=== PATIENT | female | born 1970 | race Caucasian/White ===

== ENCOUNTER 2022-01-06 15:06 | Emergency (ER) | payer BC, SELFPAY ==
[2022-01-06 15:19] VITALS: BP 118/75; PULSE 75; RESP 16; TEMP 36.9; O2SAT 98
--- NOTE | 2022-01-06 16:12 | ED.SKABFB ---
HPI - Skin/Abscess/Foreign Bdy General Chief complaint: Extremity Injury, Lower Stated complaint: toe inf Time Seen by Provider: 01/06/22 15:30 Source: patient Mode of arrival: ambulatory Limitations: no limitations History of Present Illness HPI narrative: Ms. Vaughan is a 51-year-old female patient presenting to the clinic today with complaints of possible toe infection to the right second toe. She reports that over a month ago she possibly stepped on a piece of glass in her mother's carpet. She has attempted to remove the glass twice being the last time 1 week ago and now the area is tender and swollen. She still thinks there may be something in her toe. Related Data Home Medications Medication Instructions Recorded Confirmed albuterol sulfate 90 mcg/actuation inhalation 01/06/22 aerosol inhaler fluoxetine 20 mg capsule mg 01/06/22 Allergies Allergy/AdvReac Type Severity Reaction Status Date / Time LEVOQUIN Allergy Intermediate ITCHY Uncoded 01/06/22 15:18 SWEATY Review of Systems Review of Systems: Pertinent positives per HPI. Patient denies any fever, chills, rash, headache, visual changes, dizziness, cough, runny nose, sore throat, shortness of breath, chest pain, palpitations, nausea, vomiting, diarrhea, constipation, abdominal pain, or any urinary issues. PMFSH Comments At the time of my signature, I reviewed and agree with the nursing past medical, surgical, social, and family history. There is no relevant family history pertinent to the patient complaint. Exam Narrative: General: Well-developed, well nourished, in no apparent distress Head: Normocephalic, atraumatic. Cardio: Regular rate and rhythm, s1 and s2 normal, no murmur appreciated. Resp: Clear to auscultation bilaterally, no rhonchi, rales, wheezing or rubs. Integumentary: [place], warm, and dry, callus to the plantar aspect of the right second toe with a black center. Tender to palpation without fluctuance -mild redness Course Course Emergency Course: Portions of this record may have been created with voice recognition software. Level of Care: Express Care Visit Vital Signs Vital signs: Vital Signs Temperature 36.9 C 01/06/22 15:19 Pulse Rate 75 01/06/22 15:19 Respiratory Rate 16 01/06/22 15:19 Blood Pressure 118/75 01/06/22 15:19 Pulse Oximetry 98 01/06/22 15:19 Oxygen Delivery Room Air 01/06/22 15:19 Temperature 36.9 C 01/06/22 15:19 Pulse Rate 75 01/06/22 15:19 Respiratory Rate 16 01/06/22 15:19 Blood Pressure 118/75 01/06/22 15:19 Pulse Oximetry 98 01/06/22 15:19 Oxygen Delivery Room Air 01/06/22 15:19 Vital signs reviewed Procedures Foreign Body Removal Foreign Body #1: Foreign Body Removal Date: 01/06/22 Site: right (Second toe) Description of foreign body: other (Possible glass) Technique: other (18-gauge needle) Confirmed by:: palpation Complications: none Post-procedure exam: awake, alert Neurovascular: no change from pre-procedure Foreign Body Removal Narrative: Verbal consent obtained for foreign body removal of the soft tissue of the second right toe. Plantar aspect of the second toe was cleansed with technic care and sterile saline. Numbed using 1 mL of 1% lidocaine without epi. 18-gauge needle was used to remove the black center of the callus and soft tissue was explored without any visualization or palpation of foreign body. Patient tolerated procedure well. Triple antibiotic ointment and Band-Aid was applied postprocedure MDM - Skin/Abscess/Foreign Bdy MDM Narrative Medical decision making narrative: At the time of visit patient is resting comfortably on the exam table. She has right second toe pain. Callus was removed in the clinic however no actual foreign body was removed or found from the toe. Patient tolerated procedure well. Supportive measures were discussed with the patient she voiced unders
== END 2022-01-06 16:19 | disposition home or self-care (01) ==
PROVIDERS: Emergency Provider Nurse Practitioner Family
DX: M79.674 Pain in right toe(s) (principal); F41.9 Anxiety disorder, unspecified
CPT/HCPCS: 99213; G0463

== ENCOUNTER 2022-04-14 15:27 | Emergency (ER) | payer BC, SELFPAY ==
--- NOTE | ~2022-04-14 | XR_ITS ---
EXAMINATION: XR chest 2V DATE: 04/14/2022 15:47 INDICATION: 2 months of cough TECHNIQUE: PA and lateral views of the chest were obtained. COMPARISON: None FINDINGS: Heart is normal with small pericardial fat pad along side the left ventricular apex. Lungs are clear with no focal airspace opacities, pulmonary edema, pleural effusion or pneumothorax. Mild anterior w edging of a couple upper thoracic vertebral bodies. IMPRESSION: 1. No acute cardiopulmonary disease. Reviewed, dictated and finalized at location [facility]
[2022-04-14 15:36] VITALS: BP 128/77; PULSE 82; RESP 16; TEMP 36.6; O2SAT 99
--- NOTE | 2022-04-14 15:42 | ED.URI ---
HPI - URI/Sore Throat General Chief Complaint: Upper Respiratory Infection Stated Complaint: COUGH/CONGESTION/STUFFY NOSE/FEVER Time Seen by Provider: 04/14/22 15:42 Source: patient and RN notes reviewed History of Present Illness HPI Narrative: Patient is a 51-year-old female who presents to urgent care with complaints of a cough, left ear pain and nasal congestion. Patient states that she has been sick since she had COVID in January. Patient was placed on Keflex on February 20. Patient was then placed on doxycycline approximately 1 month ago on March 05 and given an inhaler for diagnosis of ?pneumonia?. Patient currently parts of using [place] cold and flu for her medication for symptoms. Denies any recent fevers. States symptoms restarted approximately 1 week ago. Patient is followed up with her doctor. States that she [place] half away. Currently denies any shortness of breath or chest discomfort. She has been using her old prescription for an inhaler. States that she has never been diagnosed with asthma but has had recurrent bronchitis. No other acute complaints. No acute distress noted. Patient aware of the plan of care. Some parts of this dictation were generated by voice recognition software and may contain typographical and/or grammatical inaccuracies. Related Data Home Medications Medication Instructions Recorded Confirmed albuterol sulfate 90 mcg/actuation 2 inh inhalation PRN PRN Wheezing 01/06/22 04/14/22 aerosol inhaler fluoxetine 20 mg capsule 20 mg PO DAILY 01/06/22 04/14/22 Allergies Allergy/AdvReac Type Severity Reaction Status Date / Time LEVOQUIN Allergy Intermediate ITCHY Uncoded 04/14/22 15:35 SWEATY Review of Systems Review of Systems: CONSTITUTIONAL: Denies fever, chills, or sweats. EYES: Denies visual changes, redness, or discharge. ENT: Reports of nasal congestion, left otalgia CARDIOVASCULAR: Denies chest pain, palpitations, or edema. RESPIRATORY: Reports of intermittent productive cough with intermittent dyspnea GASTROINTESTINAL: Denies abdominal pain, nausea, vomiting, or diarrhea. GENITOURINARY: Denies dysuria or hematuria. SKIN: Denies rash or itching. MUSCULOSKELETAL: Denies back pain, joint pain, or myalgia. NEUROLOGIC: Denies headache, numbness, or weakness. All other systems reviewed are negative, except as documented in HPI. PMFSH Comments At the time of my signature, I reviewed and agree with the nursing past medical, surgical, social, and family history. There is no relevant family history pertinent to the patient complaint. Exam Narrative: GENERAL: This is a well-nourished, well-developed patient, in no apparent distress. HEAD: normocephalic, atraumatic. EYES: PERRL. Sclera clear/white. Vision is grossly intact. EARS: External ears normal, auditory canals clear and without drainage, mild bilateral eustachian tube dysfunction, worse on the left. TMs normal without perforation. Hearing grossly intact. NOSE: External nose normal with no obvious nasal discharge, nares without redness, no rhinorrhea. THROAT: Mucous membranes moist, posterior pharynx clear. Moderate postnasal drainage NECK: Neck supple, non-tender bilateral submandibular lymphadenopathy CARDIOVASCULAR: Regular rate and rhythm RESPIRATORY: Slight crackles throughout SKIN: warm, intact with no suspicious lesions or rash, good texture and turgor. NEURO: awake, alert, and oriented to person, place and time. There were no obvious focal neurologic abnormalities. EXTREMITIES: No clubbing, cyanosis, or edema. Course Course Level of Care: Express Care Visit Vital Signs Vital signs: Vital Signs Temperature 98 F 04/14/22 15:36 Pulse Rate 82 04/14/22 15:36 Respiratory Rate 16 04/14/22 15:36 Blood Pressure 128/77 04/14/22 15:36 Pulse Oximetry 99 04/14/22 15:36 Temperature 98 F 04/14/22 15:36 Pulse Rate 82 04/14/22 15:36 Respiratory Rate 16 04/14/22 15:3
== END 2022-04-14 16:35 | disposition home or self-care (01) ==
PROVIDERS: Emergency Provider Nurse Practitioner Family
DX: J40 Bronchitis, not specified as acute or chronic (principal)
CPT/HCPCS: 71046; 87081; 87880; 99213; G0463